=== PATIENT | female | born 1950 | race Caucasian/White ===

== ENCOUNTER 2022-10-17 09:10 | Outpatient (CLI) | payer OTHER | END 2022-10-17 09:18 | disposition home or self-care (01) | LOC: TOM 09:10 | PROVIDERS: ATTEND Surgery | DX: K64.2 Third degree hemorrhoids (principal); R15.9 Full incontinence of feces; K57.30 Diverticulosis of large intestine without perforation or abscess without bleeding; D37.4 Neoplasm of uncertain behavior of colon | CPT/HCPCS: 74177; Q9965 ==

== ENCOUNTER 2022-10-17 10:52 | Outpatient (CLI) | payer OTHER | END 2022-10-17 10:53 | disposition home or self-care (01) | LOC: LAB 10:52 | PROVIDERS: ATTEND Radiology Diagnostic Radiology | DX: N20.0 Calculus of kidney (principal) ==

== ENCOUNTER 2023-03-19 06:00 | Day surgery (SDC) | payer OTHER ==
[~2023-03-19] VITALS: Ht 154.9 cm; Wt 47.6 kg
[~2023-03-19 06:00] MED LIST: NORVASC5 MG PO; SYNTHROID50 MCG PO
[2023-03-19] MEDS ORDERED: TRAM1TAB98 PO (11:50)
== END 2023-03-19 15:00 | disposition home or self-care (01) ==
LOC: CIR.AMB 06:00
PROVIDERS: ATTEND Surgery
DX: R15.9 Full incontinence of feces (principal); K64.2 Third degree hemorrhoids; K57.30 Diverticulosis of large intestine without perforation or abscess without bleeding; Z20.822 Contact with and (suspected) exposure to COVID-19; I10 Essential (primary) hypertension; E03.9 Hypothyroidism, unspecified
CPT/HCPCS: 64581; 95972; C1778

== ENCOUNTER 2023-04-02 05:40 | Day surgery (SDC) | payer OTHER ==
[~2023-04-02 05:40] MED LIST changes: +LOZOL PO; +TRAM1TAB98 PO
[2023-04-02] MEDS ORDERED: TRAM1TAB98 PO (09:15)
== END 2023-04-02 10:50 | disposition home or self-care (01) ==
LOC: CIR.AMB 05:40
PROVIDERS: ATTEND Surgery
DX: R15.9 Full incontinence of feces (principal); K64.2 Third degree hemorrhoids; K57.30 Diverticulosis of large intestine without perforation or abscess without bleeding; D37.4 Neoplasm of uncertain behavior of colon; Z20.822 Contact with and (suspected) exposure to COVID-19
CPT/HCPCS: 64590; 95972; L8679